=== PATIENT | male | born 1985 | race Caucasian/White ===

== ENCOUNTER 2019-01-22 18:13 | Emergency (ER) | payer OTHER ==
[2019-01-22 18:43] VITALS: BP 136/73
--- NOTE | 2019-01-22 18:54 | UC ---
Throat Pain/Nasal Carlos HPI - HPI Summary HPI Summary: 33-year-old male with a mild sore throat over the past couple of days and today his right ear started hurting and he had muffled hearing in it. - History of Current Complaint Chief Complaint: UCGeneralIllness Stated Complaint: COUGH Time Seen by Provider: 01/22/19 18:49 Hx Obtained From: Patient Onset/Duration: Gradual Onset Severity: Mild Pain Intensity: 8 Cough: None Associated Signs & Symptoms: Positive: Negative - Epiglottits Risk Factors Epiglottis Risk Factors: Negative - Allergies/Home Medications Allergies/Adverse Reactions: Allergies Allergy/AdvReac Type Severity Reaction Status Date / Time NKA Allergy none Uncoded 01/22/19 18:43 Home Medications: Home Medications Lmefolate/B3/Ramirez/Zn/Emily/Chrom [Nicomide Tablet] 1 tab PO BID 01/22/19 [History Confirmed 01/22/19] PMH/Surg Hx/FS Hx/Imm Hx Previously Healthy: Yes - Surgical History Surgical History: None - Family History Known Family History: Positive: Non-Contributory - Social History Alcohol Use: Occasionally Alcohol Amount: 1/week Substance Use Type: None Smoking Status (MU): Never Smoked Tobacco Review of Systems All Other Systems Reviewed And Are Negative: Yes Constitutional: Positive: Chills ENT: Positive: Sore Throat - Sore throat for 2 days., Ear Ache - Bilateral earache today. Respiratory: Positive: Cough - Mild nonproductive cough today. Is Patient Immunocompromised?: No Physical Exam Triage Information Reviewed: Yes Appearance: Well-Appearing, No Pain Distress, Well-Nourished Vital Signs: Initial Vital Signs Temp 97.5 F 01/22/19 18:39 Pulse 66 01/22/19 18:39 Resp 18 01/22/19 18:39 BP 136/73 01/22/19 18:39 Pulse Ox 100 01/22/19 18:39 Vital Signs Reviewed: Yes Eyes: Positive: Conjunctiva Clear ENT: Positive: Pharyngeal erythema - Mild pharyngeal erythema, no exudate., TM red - Left tympanic membrane is pearly-contreras with good [place] ayala and light reflex, right tympanic membrane is erythematous with bulging., Uvula midline Neck: Positive: Supple, Nontender, No Lymphadenopathy Respiratory: Positive: Lungs clear, Normal breath sounds, No respiratory distress, No accessory muscle use Cardiovascular: Positive: RRR, No Murmur, Pulses Normal, Brisk Capillary Refill Musculoskeletal Exam: Normal Neurological Exam: Normal Psychological Exam: Normal Skin Exam: Normal Throat Pain/Nasal Course/Dx - Course Course Of Treatment: Patient is comfortable here. He has a right otitis media for which I'm treating him with amoxicillin 875 mg by mouth twice a day 10 days. He can take Tylenol every 4 hours and Motrin every 8 hours for pain. He's follow-up with his primary care provider if no improvement early next week. - Differential Dx/Diagnosis Provider Diagnosis: Right otitis media Discharge - Sign-Out/Discharge Documenting (check all that apply): Patient Departure All imaging exams completed and their final reports reviewed: No Studies - Discharge Plan Condition: Fair Disposition: HOME Patient Education Materials: Ear Infection (ED) Referrals: No Primary Care Phys,NOPCP [Primary Care Provider] - [facility] [Outside] Additional Instructions: Increase fluids, Tylenol every 4 hours may alternate with Motrin every 8 hours with food. Take the antibiotic twice a day for 10 days. [facility] if no improvement early next week. - Billing Disposition and Condition Condition: FAIR Disposition: Home
== END 2019-01-22 19:14 | disposition home or self-care (01) ==
LOC: UCEAST 18:13
DX: H66.91 Otitis media, unspecified, right ear (principal); J02.9 Acute pharyngitis, unspecified; R05 Cough; H92.02 Otalgia, left ear; H73.892 Other specified disorders of tympanic membrane, left ear
CPT/HCPCS: 99212; G0463

== ENCOUNTER 2019-02-01 17:48 | Emergency (ER) | payer OTHER ==
[2019-02-01 17:55] VITALS: BP 118/71
--- NOTE | 2019-02-01 18:32 | UC ---
Ear Complaint HPI - HPI Summary HPI Summary: 33-year-old male presents with complaints of right ear pain and bilateral ear fullness. He was seen at this facility on 01/22/2019 and diagnosed with a right otitis media and was started on amoxicillin 875 mg twice a day 10 days. Patient states he has completed 9 days of the amoxicillin and has had some improvement in the pain however the has had no improvement in the fullness and is now noting fullness in the left ear as well. Denies fever, chills, ear drainage, hearing loss, dizziness, vertigo, tinnitus, nasal congestion, sore throat, or cough. - History of Current Complaint Chief Complaint: UCEar Stated Complaint: EAR ACHE Time Seen by Provider: 02/01/19 18:28 Hx Obtained From: Patient Pain Intensity: 1 - Allergies/Home Medications Allergies/Adverse Reactions: Allergies Allergy/AdvReac Type Severity Reaction Status Date / Time No Known Allergies Allergy Verified 02/01/19 17:56 PMH/Surg Hx/FS Hx/Imm Hx Previously Healthy: Yes - Denies significant PMH - Surgical History Surgical History: None - Family History Known Family History: Positive: Non-Contributory - Social History Lives: Alone Alcohol Use: Occasionally Alcohol Amount: 1/week Substance Use Type: None Smoking Status (MU): Never Smoked Tobacco Review of Systems All Other Systems Reviewed And Are Negative: Yes Constitutional: Negative: Fever, Chills Eyes: Negative: Drainage, Eye Redness ENT: Positive: Ear Ache. Negative: Sore Throat, Nasal Discharge, Sinus Congestion, Sinus Pain/Tenderness Respiratory: Negative: Shortness Of Breath, Cough Cardiovascular: Positive: Negative Gastrointestinal: Positive: Negative Genitourinary: Positive: Negative Musculoskeletal: Positive: Negative Neurological: Positive: Negative Is Patient Immunocompromised?: No Physical Exam - Summary Physical Exam Summary: GENERAL APPEARANCE: Well developed, well nourished, alert and cooperative, and appears to be in no acute distress. EYES: Conjunctiva clear. No drainage. EARS: External auditory canals clear, hearing grossly intact, right TM with erythema and effusion, left TM dull with air bubbles. NOSE: No nasal discharge. THROAT: Pharynx normal. No tonsilar inflammation, swelling, exudate, or lesions. Uvula midline. Oral cavity normal. Teeth and gingiva in good general condition. NECK: Neck supple, non-tender without lymphadenopathy. CARDIAC: Normal S1 and S2. No S3, S4 or murmurs. Rhythm is regular. There is no peripheral edema, cyanosis or pallor. Extremities are warm and well perfused. Capillary refill is less than 2 seconds. Peripheral pulses intact. LUNGS: Clear to auscultation without rales, rhonchi, wheezing or diminished breath sounds. ABDOMEN: Positive bowel sounds. Soft, nondistended, nontender. No guarding or rebound. No masses or hepatosplenomegally. MUSKULOSKELETAL: ROM intact to all extremities. No joint erythema or tenderness. Normal muscular development. Normal gait. SKIN: Skin normal color, texture and turgor with no lesions or eruptions. Triage Information Reviewed: Yes Vital Signs: Initial Vital Signs Temp 98.2 F 02/01/19 17:53 Pulse 57 02/01/19 17:53 Resp 18 02/01/19 17:53 BP 118/71 02/01/19 17:53 Pulse Ox 100 02/01/19 17:53 Vital Signs Reviewed: Yes Ear Complaint Course/Dx - Course Course Of Treatment: 33-year-old male presents with complaints of right ear pain and bilateral ear fullness. He was seen at this facility on 01/22/2019 and diagnosed with a right otitis media and was started on amoxicillin 875 mg twice a day 10 days. Patient states he has completed 9 days of the amoxicillin and has had some improvement in the pain however the has had no improvement in the fullness and is now noting fullness in the left ear as well. Denies fever, chills, ear drainage, hearing loss, dizziness, vertigo, tinnitus, nasal congestion, sore throat, or cough. Afebrile. Vital signs stable. Patient had external auditory canals clear, hearing grossly intact, right TM with erythema and effusion, left TM dull with air bubbles and otherwise unremarkable exam. I will switch him to Augmentin 875 mg twice a day for additional 10 days for the otitis media and start him on fluticasone nasal spray 2 sprays each nostril once daily to treat for bilateral eustachian tube dysfunction. I have given him a referral to ENT to follow-up in 7 days especially if symptoms are not improving. Anticipatory guidance and warning symptoms were reviewed with the patient. Verbalizes understanding and agrees with plan of care. - Differential Dx/Diagnosis Differential Diagnosis/HQI/PQRI: Cerumen Impaction, Otitis Externa, Otitis Media , URI Provider Diagnosis: Right otitis media with effusion, Dysfunction of both eustachian tubes Discharge - Sign-Out/Discharge Documenting (check all that apply): Patient Departure All imaging exams completed and their final reports reviewed: No Studies - Discharge Plan Condition: Stable Disposition: HOME Prescriptions: Amoxicillin/Clavulanate TAB* [Augmentin TAB 875*] 875 mg PO BID #20 tab Fluticasone NASAL SPRAY 50MCG* [Flonase NASAL SPRAY 50MCG*] 2 spray BOTH NARES DAILY #1 btl Patient Education Materials: Ear Infection (ED) Referrals: No Primary Care Phys,NOPCP [Primary Care Provider] - Marcos Paige MD [Medical Doctor] - 7 Days Additional Instructions: Your right ear still appears to have some infection although I believe there has been some improvement based on the previous providers notes. We will start you on another course of antibiotics to treat the infection. Take Augmentin 875 mg twice a day 10 days. Take with food to avoid upset stomach. Be sure to complete the entire course even if you're feeling better. I would also like him to start fluticasone nasal spray 2 sprays each nostril once a day to treat for some eustachian tube dysfunction. Use acetaminophen (Tylenol) or ibuprofen (Advil, Motrin) according to directions as needed for pain. I have given you a referral to the Ears, Nose, and Throat specialist for follow up in 7 days especially if symptoms are not improving. Call for appointment. Seek immediate medical attention in the emergency room if you develop fever greater than 100.5 F, have worsening pain despite taking pain medication, drainage or blood coming from the ear, loss of hearing, or any worsening of symptoms. - Billing Disposition and Condition Condition: STABLE Disposition: Home
== END 2019-02-01 19:01 | disposition home or self-care (01) ==
LOC: UCEAST 17:48
DX: H65.91 Unspecified nonsuppurative otitis media, right ear (principal); H69.93 Unspecified Eustachian tube disorder, bilateral
CPT/HCPCS: 99212; G0463